=== PATIENT | male | born 1970 | race Caucasian/White ===

== ENCOUNTER → 2019-01-25 13:37 | Outpatient (CLI) | payer OTHER ==
--- NOTE | ~2019-01-25 | EC ---
PATIENT:CHUCHO HALE DATE OF SERVICE: 01/25/19 SEX: M MEDICAL RECORD: [id number] DATE OF : 68 LOCATION:[facility] AGE OF PATIENT: 48 ADMISSION DATE: 01/25/19 REFERRING PHYSICIAN: INTERPRETING PHYSICIAN: PIO PASTOR MD ECHOCARDIOGRAM REPORT ECHO CHARGES 4 ECHO COMPLETE Date: 01/25/19 CLINICAL DIAGNOSIS: MURMUR ECHOCARDIOGRAPHIC MEASUREMENTS (adult normal given) AC root (d.<3.7cm) 3.6 cm LV Septum d (<1.2 cm> 1.1 cm Valve Excursion 2.0 cm LV Septum (systole) 1.3 cm Left Atria (s.<4.0cm> 3.9 cm LVPW d(<1.2cm) 1.3 cm RV (d.<2.3cm) 3.4 cm LVPW (sytole) 1.5 cm LV diastole(<5.6CM) 5.1 cm MV E-F(>70mm/sec) cm LV systole 3.9 cm LVOT Diameter 2.2 cm MV exc.(>10mm) 1.4 cm Est.ejection fraction (50-75%) % DOPPLER: LVIT cm/sec A 83.0 cm/sec E 92.0 cm/sec LA cm/sec RVSP 22 mmHg LVOT 137 cm/sec AOP1/2T m/s Asc. Ao 160 cm/sec RVOT 105 cm/sec RA cm/sec PA 125 cm/sec AV Gradient Peak 10.24mmHg AV Mean 5.23 mmHg AV Area 3.4 cm MV Gradient Peak 3.91 mmHg MV Mean 2.00 mmHg MV Area cm COMMENTS: Sales Representative Cash Registers: 2 LYNETTE JETT Precision Lens Technician: 3 Dr. Ramsey TAPE# PACS Pericardial Effusion N DATE OF SERVICE: Adequate 2D, color flow, spectral Doppler, and M-Mode. No LVH. LV internal dimension is normal. Wall motion normal. EF is greater than or equal to 55%. Aortic valve is tricuspid. No evidence of stenosis on Doppler interrogation. Left atrium is normal. Mitral valve shows no prolapse. Trace MR. Right-sided chambers size grossly normal. Trace TR. TRANSINT:[id number] Voice Confirmation ID: [id number] DOCUMENT ID: [id number] ECHOCARDIOGRAM REPORT [id number] CHUCHO HALE PIO PASTOR MD CC: [id number] DICTATION DATE: 01/26/19 1304 BUS ATTENDANT: 01/26/19 1329 DEP CLI 01/25/19 [facility] [id number] [id number]
== END | disposition home or self-care (01) ==
LOC: D.HCCARDIO 13:37
PROVIDERS: ATTEND Internal Medicine Interventional Cardiology
DX: R06.09 Other forms of dyspnea (principal); R01.1 Cardiac murmur, unspecified

== ENCOUNTER 2019-03-24 09:04 | Day surgery (SDC) | payer OTHER ==
[~2019-03-24] VITALS: Ht 185.4 cm; Wt 106.6 kg
[~2019-03-24 09:04] MED LIST: LISINOPRIL10 MG PO
[2019-03-24 09:34] LABS: HEMATOCRIT 51.1 % (42.0-54.0); HEMOGLOBIN 17.6 g/dL (13.5-17.5); MCHC 34.4 g/dL (31.0-37.0); MCV 87.2 fL (80.0-100.0); MEAN PLATELET VOLUME 9.9 fL (7.4-10.4); RBC 5.86 10x6/uL (4.20-6.10); RDW 12.6 % (11.5-14.5); WBC 7.1 10x3/uL (4.8-10.8)
[2019-03-24 10:05] VITALS: BP 143/90; Ht 185.4 cm; Wt 106.6 kg
--- NOTE | 2019-03-24 14:50 | NUR ---
REC'D FROM RR. FAMILY AT BEDSIDE. DRESSING CDI TO LOWER BACK. CUCO VELAZQUEZ SERVED.
--- NOTE | 2019-03-24 15:20 | NUR ---
TOLERATED DIET. AMBULATED TO BATHROOM AND VOIDED WITHOUT DIFFICULTY. DRESSING CDI TO LOWER BACK. FAMILY AT BEDSIDE. COFFEE AND ICE WATER BROUGHT TO PATIENT.
--- NOTE | 2019-03-24 16:00 | NUR ---
IV DC'D WITH CATHETER INTACT. WRITTEN AND VERBAL DC INST. GIVEN TO PT ALONG WITH RX. VERBALIZED UNDERSTANDING.
--- NOTE | 2019-03-24 16:05 | NUR ---
DC'D HOME WITH FAMILY VIA PRIVATE VEHICLE. STABLE AT TIME OF DC.
== END 2019-03-24 16:05 | disposition home or self-care (01) ==
LOC: D.OPS 09:04 → D.PAN 11:30 → D.OPS 16:05
PROVIDERS: Anesthesiology; ATTEND Neurological Surgery
DX: M51.26 Other intervertebral disc displacement, lumbar region (principal); I10 Essential (primary) hypertension